=== PATIENT | female | born 1960 | race African-American/Black ===

== ENCOUNTER 2017-05-17 09:08 | Emergency (ER) | payer OTHER ==
--- NOTE | 2017-05-17 10:08 | RAD ---
PORTABLE UPRIGHT FRONTAL CHEST RADIOGRAPH: Date: 05-17-17 Comparison: 04-09-14 History: Cough, body aches, and flu like symptoms. FINDINGS: Lungs are clear. Heart and mediastinal contours are unremarkable. IMPRESSION: No acute findings. POS: [facility]
[2017-05-17] MEDS ORDERED: predniSONE 20 MG TAB ONE (10:12)
== END 2017-05-17 11:09 | disposition home or self-care (01) ==
LOC: ERS 09:08
DX: J06.9 Acute upper respiratory infection, unspecified (principal); I10 Essential (primary) hypertension; J45.909 Unspecified asthma, uncomplicated; E78.5 Hyperlipidemia, unspecified; F32.9 Major depressive disorder, single episode, unspecified; Z79.899 Other long term (current) drug therapy
CPT/HCPCS: 71045; J7506; J7620

== ENCOUNTER 2019-02-05 02:08 | Emergency (ER) | payer OTHER ==
[2019-02-05] MEDS ORDERED: Aspirin 325 MG TAB ONE (02:25)
[2019-02-05 02:50] LABS: #Basophils 0.1 thou/uL (0.0-0.2); #Eosinphils 0.1 thou/uL (0.0-0.7); #Monocytes 0.9 thou/uL (0.11-0.59); %Basophils 0.8 % (0.0-1.0); %Eosinophils 2.1 % (0.0-10.0); %Lymphocytes 42.4 % (21.0-51.0); %Monocytes 12.5 % (0.0-10.0); %Neutrophils 42.3 % (42.0-75.0); Hemoglobin 12.5 g/dL (12.0-16.0); Mean Corpuscular HGB CONC 33.5 g/dL (32.0-36.0); Mean Corpuscular Hemoglobin 26.9 pg (27.0-31.0); Mean Corpuscular Volume 80.5 fL (78.0-98.0); Mean Platelet Volume 9.5 fL (7.4-10.4); Platelet Count 177 thou/uL (130-400); RBC Distribution Width 15.1 % (11.5-14.5); Red Blood Cell (RBC) Count 4.65 mill/uL (4.20-5.40); White Blood Cell (WBC) Count 7.1 thou/uL (4.8-10.8)
[2019-02-05 03:10] LABS: ALT (SGPT) 36 U/L (8-55); AST (SGOT) 42 U/L (5-34); Albumin 4.3 g/dL (3.5-5.0); Alkaline Phosphatase 53 U/L (40-110); Anion Gap 17 mmol/L (10-20); BUN (Urea Nitrogen) 16 mg/dL (9.8-20.1); Bilirubin, Total 0.5 mg/dL (0.2-1.2); Calc. Creatinine Clearance 0 mL/min (70-130); Calcium 9.4 mg/dL (7.8-10.44); Carbon Dioxide 28 mmol/L (22-29); Chloride 97 mmol/L (98-107); Estimated GFR-MDRD Greater than 90; Glucose 106 mg/dL (70-105); Protein, Total 7.3 g/dL (6.0-8.3); Sodium 139 mmol/L (136-145)
[2019-02-05 03:13] LABS: Potassium 2.8 mmol/L (3.5-5.1)
[2019-02-05] MEDS ORDERED: Potassium Chloride 20 MEQ TAB ONE (03:32)
[2019-02-05] MEDS ORDERED: Potassium Chloride 20 MEQ in Premix Bag 1 BAG IVPB SCH (03:45)
--- NOTE | 2019-02-05 08:04 | RAD ---
Exam: Chest one view HISTORY:Chest pain Comparison: 05/17/2017 FINDINGS: Cardiac silhouette: Normal Aorta: Unremarkable Pulmonary vessels: Normal Costophrenic angles: Clear LUNGS: No masses or consolidation. Pneumothorax: None Osseous abnormalities: None IMPRESSION: No acute cardiopulmonary process.
== END 2019-02-05 03:50 | disposition home or self-care (01) ==
LOC: ERS 02:08
DX: S46.912A Strain of unspecified muscle, fascia and tendon at shoulder and upper arm level, left arm, initial encounter (principal); E87.6 Hypokalemia; I10 Essential (primary) hypertension; J45.909 Unspecified asthma, uncomplicated; E78.5 Hyperlipidemia, unspecified; M19.90 Unspecified osteoarthritis, unspecified site; F32.9 Major depressive disorder, single episode, unspecified; Z79.899 Other long term (current) drug therapy; X58.XXXA Exposure to other specified factors, initial encounter
CPT/HCPCS: 36415; 71045; 80053; 83735; 84484; 85025; 93005; J3480

== ENCOUNTER 2020-07-31 01:18 | Emergency (ER) | payer OTHER ==
[2020-07-31] MEDS ORDERED: Aspirin Chewable 81 MG TAB ONE (01:31)
[2020-07-31 01:50] LABS: #Basophils 0.1 thou/uL (0.0-0.2); #Eosinphils 0.1 thou/uL (0.0-0.7); #Lymphocytes 4.2 thou/uL (1.20-3.40); #Monocytes 0.5 thou/uL (0.11-0.59); #Neutrophils 4.1 thou/uL (1.40-6.50); %Basophils 1.2 % (0.0-1.0); %Eosinophils 1.3 % (0.0-10.0); %Lymphocytes 46.7 % (21.0-51.0); %Monocytes 5.8 % (0.0-10.0); %Neutrophils 45.1 % (42.0-75.0); Hemoglobin 11.1 g/dL (12.0-16.0); Mean Corpuscular HGB CONC 33.6 g/dL (32.0-36.0); Mean Corpuscular Volume 83.2 fL (78.0-98.0); Mean Platelet Volume 8.1 fL (7.4-10.4); Platelet Count 396 thou/uL (130-400); RBC Distribution Width 13.7 % (11.5-14.5); Red Blood Cell (RBC) Count 3.96 mill/uL (4.20-5.40)
[2020-07-31 02:16] LABS: ALT (SGPT) 12 U/L (8-55); AST (SGOT) 27 U/L (5-34); Albumin 3.7 g/dL (3.5-5.0); Alkaline Phosphatase 68 U/L (40-110); Anion Gap 16 mmol/L (10-20); BUN (Urea Nitrogen) 11 mg/dL (9.8-20.1); Bilirubin, Total Less than 0.2 mg/dL (0.2-1.2); Calc. Creatinine Clearance 0 mL/min (70-130); Calcium 9.2 mg/dL (7.8-10.44); Carbon Dioxide 26 mmol/L (22-29); Chloride 103 mmol/L (98-107); Globulin 3.5 g/dL (2.4-3.5); Glucose 113 mg/dL (70-105); Lipase 180 U/L (8-78); Magnesium 1.3 mg/dL (1.6-2.6); Potassium 3.4 mmol/L (3.5-5.1); Protein, Total 7.2 g/dL (6.0-8.3); Sodium 142 mmol/L (136-145)
[2020-07-31] MEDS ORDERED: Lidocaine Viscous Sol 2% 15 ml UD Cup ONE (02:28)
[2020-07-31] MEDS ORDERED: Mag-Al 1200 mg/1200 mg/30 ML UDCUP ONE (02:28)
[2020-07-31] MEDS ORDERED: Iopamidol-370 76% 500 ML 1 ML ONE (11:03)
== END 2020-07-31 05:53 | disposition home or self-care (01) ==
LOC: ERS 01:18
DX: R07.9 Chest pain, unspecified (principal); I10 Essential (primary) hypertension; E78.5 Hyperlipidemia, unspecified; Z79.899 Other long term (current) drug therapy
CPT/HCPCS: 36415; 71045; 74177; 80053; 83690; 83735; 84484; 85025; 93005; Q9967

== ENCOUNTER 2021-02-26 04:25 | Observation (INO) | payer OTHER ==
[~2021-02-26 04:25] MED LIST: Lorazepam 1 MG TAB PO PRN
[2021-02-26 05:56] LABS: #Basophils 0.1 thou/uL (0.0-0.2); #Eosinphils 0.1 thou/uL (0.0-0.7); #Lymphocytes 3.3 thou/uL (1.20-3.40); %Basophils 1.3 % (0.0-1.0); %Eosinophils 1.3 % (0.0-10.0); %Lymphocytes 38.5 % (21.0-51.0); %Monocytes 11.6 % (0.0-10.0); %Neutrophils 47.3 % (42.0-75.0); Mean Corpuscular HGB CONC 33.3 g/dL (32.0-36.0); Mean Corpuscular Volume 87.1 fL (78.0-98.0); Mean Platelet Volume 7.8 fL (7.4-10.4); Platelet Count 219 thou/uL (130-400); RBC Distribution Width 14.5 % (11.5-14.5); Red Blood Cell (RBC) Count 3.44 mill/uL (4.20-5.40); White Blood Cell (WBC) Count 8.5 thou/uL (4.8-10.8)
[2021-02-26 06:18] LABS: ALT (SGPT) 22 U/L (8-55); AST (SGOT) 38 U/L (5-34); Albumin 3.7 g/dL (3.4-4.8); Alkaline Phosphatase 58 U/L (40-110); Anion Gap 16 mmol/L (10-20); BUN (Urea Nitrogen) 19 mg/dL (9.8-20.1); Bilirubin, Total 0.2 mg/dL (0.2-1.2); Calc. Creatinine Clearance 0 mL/min (70-130); Calcium 8.1 mg/dL (7.8-10.44); Carbon Dioxide 25 mmol/L (23-31); Chloride 103 mmol/L (98-107); Globulin 3.5 g/dL (2.4-3.5); Glucose 96 mg/dL (80-115); Lipase 18 U/L (8-78); Protein, Total 7.2 g/dL (5.8-8.1); Sodium 141 mmol/L (136-145)
[2021-02-26 06:23] LABS: Potassium 2.6 mmol/L (3.5-5.1)
[2021-02-26 06:47] LABS: Bilirubin Negative (Negative); Blood, Urine 1+ (Negative); Clarity Clear (Clear); Glucose, Urine (Dipstick) Normal (Negative); Ketone, Urine Negative (Negative); Leukocyte 25 Leu/uL (Negative); Nitrite Negative (Negative); Protein, Urine (Dipstick) 20 mg/dL (Neg-Trace); RBC/HPF 0-3 HPF (0-3); Squamous Epithelial 0-3 HPF (0-3); Urobilinogen Normal mg/dL (Less than 2); WBC/HPF 0-3 HPF (0-3); pH, Urine 5.5 (5.0-9.0)
[2021-02-26 06:50] LABS: Bacteria/HPF 1+ HPF (None Seen)
[2021-02-26 07:08] LABS: Magnesium 1.5 mg/dL (1.6-2.6)
[2021-02-26] MEDS ORDERED: Potassium Chloride 20 MEQ TAB ONE ×2 (07:58→13:41)
[2021-02-26] MEDS ORDERED: Magnesium 2 GM/50 ML BAG (IN WATER) ONE (07:58)
[2021-02-26] MEDS ORDERED: ADMIXTURE FEE IVPB SCH (08:00)
[2021-02-26] MEDS ORDERED: POTASSIUM CHLORIDE IVPB SCH (08:00)
[2021-02-26] MEDS ORDERED: SODIUM CHLORIDE IVPB SCH (08:00)
[2021-02-26] MEDS ORDERED: Iopamidol-370 76% 500 ML 1 ML ONE (10:00)
[2021-02-26] MEDS ORDERED: Iopamidol 370 76% 50 ML VIAL FS ONE (10:00)
[2021-02-26] MEDS ORDERED: Lisinopril 10 MG TAB ONE (10:52)
[2021-02-26 11:31] LABS: Troponin I 0.014 ng/mL (< 0.028)
[2021-02-26] MEDS ORDERED: Lidocaine 2% Viscous Solution 10 ML, Aluminum & Magnesium Hydroxide 30 ML SSW SCH (11:45)
[2021-02-26] MEDS ORDERED: Pantoprazole 40 MG GRANULES PACKET PO SCH (11:45)
[2021-02-26] MEDS ORDERED: Lactated Ringer's 1,000 ML IV SCH ×3 (12:00→18:00)
[2021-02-26 12:39] LABS: Amphetamine Not Detected (NotDetected); Barbiturates Screen Not Detected (NotDetected); Benzodiazepine Screen Not Detected (NotDetected); Cocaine Metabolite Screen Not Detected (NotDetected); Methadone Not Detected (NotDetected); Methamphetamine Not Detected (NotDetected); Opiate Screen Not Detected (NotDetected); Oxycodone Screen Not Detected (NotDetected); Phencyclidine (PCP) Not Detected (NotDetected); THC/Cannabinoid Screen Not Detected (NotDetected); Tricyclic Screen Not Detected (NotDetected)
[2021-02-26] MEDS ORDERED: Amlodipine 10 MG TAB PO SCH (12:45)
[2021-02-26 12:48] LABS: SARS-CoV-2 NAA Rapid Test Not Detected (NotDetected)
[2021-02-26 12:49] LABS: Acetaminophen Less than 6.0 mcg/mL (10.0-30.0); Alcohol 35 mg/dL (Less than 10); Iron 76 ug/dL (50-170); Iron Binding Capacity, Total 295 mcg/dL (265-497); Salicylate Less than 8.0 mg/dL (15.0-30.0)
[2021-02-26 12:50] LABS: Iron 71 ug/dL (50-170); Iron Binding Capacity, Total 281 mcg/dL (265-497)
[2021-02-26] MEDS ORDERED: hydrALAZINE 20 MG/ML VIAL ONE (12:56)
[2021-02-26] MEDS ORDERED: Thiamine HCl 200 MG/2 ML VIAL SLOW IVP SCH (13:00)
[2021-02-26 13:09] LABS: Anion Gap 20 mmol/L (10-20); BUN (Urea Nitrogen) 15 mg/dL (9.8-20.1); Calc. Creatinine Clearance 0 mL/min (70-130); Calcium 8.2 mg/dL (7.8-10.44); Carbon Dioxide 18 mmol/L (23-31); Chloride 108 mmol/L (98-107); Glucose 88 mg/dL (80-115); Sodium 143 mmol/L (136-145)
[2021-02-26 13:22] LABS: Potassium 2.9 mmol/L (3.5-5.1)
[2021-02-26 13:23] LABS: Troponin I 0.012 ng/mL (< 0.028)
[2021-02-26] MEDS ORDERED: Nicotine 14 MG PATCH TD PRN (13:27)
[2021-02-26] MEDS ORDERED: Ondansetron ODT 4 MG TAB PO PRN ×2 (13:27→15:30)
[2021-02-26 14:20] LABS: Lactic Acid 2.3 mmol/L (0.5-2.2)
[2021-02-26] MEDS: hydrALAZINE 20 MG/ML VIAL SLOW IVP PRN ×3 (14:30→23:23)
[2021-02-26] MEDS ORDERED: Lorazepam 2 MG/ML VIAL SLOW IVP SCH (14:45)
[2021-02-26] MEDS: Lorazepam 1 MG TAB PO SCH ×3 (15:23→23:19)
[2021-02-26] MEDS ORDERED: Electrolyte Replacement Protocol 1 EACH FS PRN (15:30)
[2021-02-26] MEDS ORDERED: Lorazepam 2 MG/ML VIAL IM PRN (15:30)
[2021-02-26 17:36] LABS: Lactic Acid 2.9 mmol/L (0.5-2.2)
[2021-02-26 17:42] LABS: Anion Gap 15 mmol/L (10-20); BUN (Urea Nitrogen) 15 mg/dL (9.8-20.1); Calc. Creatinine Clearance 0 mL/min (70-130); Calcium 8.4 mg/dL (7.8-10.44); Carbon Dioxide 24 mmol/L (23-31); Chloride 105 mmol/L (98-107); Glucose 120 mg/dL (80-115); Magnesium 1.7 mg/dL (1.6-2.6); Potassium 3.1 mmol/L (3.5-5.1); Sodium 141 mmol/L (136-145)
[2021-02-26] MEDS ORDERED: Potassium Chloride 20 MEQ TAB PO SCH (18:00)
[2021-02-26] MEDS: Thiamine HCl 200 MG/2 ML VIAL SLOW IVP SCH (18:07)
[2021-02-26] MEDS ORDERED: Magnesium 2 GM/50 ML 2 GM in Premix Bag 1 BAG IVPB SCH (18:15)
[2021-02-26] MEDS ORDERED: Sucralfate 1 GM TAB PO SCH (19:30)
[2021-02-26] MEDS ORDERED: Simethicone Chewable 80 MG TAB PO PRN (20:08)
[2021-02-26] MEDS ORDERED: Ibuprofen 200 MG TAB PO SCH (20:15)
[2021-02-26] MEDS: Melatonin 3 MG TAB PO SCH (20:52)
[2021-02-27] MEDS: hydrALAZINE 20 MG/ML VIAL SLOW IVP PRN ×2 (03:53→11:24)
[2021-02-27 05:28] LABS: Lactic Acid 1.3 mmol/L (0.5-2.2)
[2021-02-27] MEDS: Lorazepam 1 MG TAB PO SCH ×3 (05:32→18:11)
[2021-02-27 06:12] LABS: Band 1 % (5-11); Eosinophils 3 % (0-10); Hemoglobin 9.7 g/dL (12.0-16.0); Lymphocytes 25 % (21-51); MDiff Complete? YES; Mean Corpuscular HGB CONC 33.1 g/dL (32.0-36.0); Mean Corpuscular Hemoglobin 28.9 pg (27.0-31.0); Mean Corpuscular Volume 87.2 fL (78.0-98.0); Monocytes 7 % (0-10); Neutrophil 64 % (42-75); Platelet Count 199 thou/uL (130-400); Platelet Morphology Comment Appears Adequate; RBC Distribution Width 14.5 % (11.5-14.5); RBC Morphology Normal; Red Blood Cell (RBC) Count 3.35 mill/uL (4.20-5.40); White Blood Cell (WBC) Count 7.6 thou/uL (4.8-10.8)
[2021-02-27] MEDS ORDERED: Albuterol Sulfate 1.25 MG/3 ML NEB NEB PRN (06:12)
[2021-02-27 07:54] LABS: Anion Gap 17 mmol/L (10-20); BUN (Urea Nitrogen) 11 mg/dL (9.8-20.1); Calc. Creatinine Clearance 0 mL/min (70-130); Calcium 8.1 mg/dL (7.8-10.44); Carbon Dioxide 22 mmol/L (23-31); Chloride 106 mmol/L (98-107); Glucose 93 mg/dL (80-115); Potassium 3.3 mmol/L (3.5-5.1); Sodium 142 mmol/L (136-145)
[2021-02-27] MEDS ORDERED: Potassium Chloride 20 MEQ TAB PO SCH ×2 (08:30→09:30)
[2021-02-27] MEDS: Folic Acid 1 MG TAB PO SCH (08:30)
[2021-02-27] MEDS: Amlodipine 10 MG TAB PO SCH (08:30)
[2021-02-27] MEDS: Multivit, Therapeutic 1 TAB PO SCH (08:31)
[2021-02-27] MEDS: Sucralfate 1 GM TAB PO SCH ×4 (08:31→21:07)
[2021-02-27] MEDS: Lisinopril/Hydrochlorothiazide 20/25 mg Tablet PO SCH (08:32)
[2021-02-27] MEDS ORDERED: Glycerin Adult Supp. (24 ct jar) PR SCH (09:00)
[2021-02-27] MEDS ORDERED: Amlodipine 10 MG TAB PO SCH (09:00)
[2021-02-27] MEDS: Polyethylene Glycol 3350 17 GM Packet PO SCH (09:42)
[2021-02-27] MEDS: Calcium Carbonate 500 MG ChewTAB PO SCH ×2 (09:42→21:06)
[2021-02-27] MEDS: Famotidine 20 MG TAB PO SCH ×2 (09:42→21:06)
[2021-02-27 11:20] LABS: Magnesium 1.8 mg/dL (1.6-2.6)
[2021-02-27 12:11] LABS: Hemoglobin A1c 5.6 % (4.0-6.0)
[2021-02-27 12:19] LABS: Cardiac Risk 5.2 (Less than 4.5)
[2021-02-27] MEDS ORDERED: Electrolyte Replacement Protocol FS PRN (12:30)
[2021-02-27] MEDS ORDERED: Magnesium 2 GM/50 ML 2 GM in Premix Bag 1 BAG IVPB SCH (12:30)
[2021-02-27 14:11] VITALS: BMI 40.3
[2021-02-27] MEDS ORDERED: Lorazepam 1 MG TAB PO PRN (15:30)
[2021-02-27] MEDS: Thiamine HCl 200 MG/2 ML VIAL SLOW IVP SCH (16:18)
[2021-02-27] MEDS ORDERED: Lisinopril 20 MG TAB PO SCH (18:15)
[2021-02-27] MEDS: Melatonin 3 MG TAB PO SCH (21:07)
[2021-02-27] MEDS ORDERED: Lorazepam 2 MG/ML VIAL SLOW IVP SCH (21:15)
[2021-02-28] MEDS: Lorazepam 1 MG TAB PO SCH (02:00)
[2021-02-28] MEDS ORDERED: Cepastat Lozenges 1 LOZ PO PRN (05:31)
[2021-02-28 06:03] LABS: Anion Gap 12 mmol/L (10-20); BUN (Urea Nitrogen) 9 mg/dL (9.8-20.1); Calc. Creatinine Clearance 119 mL/min (70-130); Calcium 8.3 mg/dL (7.8-10.44); Carbon Dioxide 24 mmol/L (23-31); Chloride 105 mmol/L (98-107); Glucose 97 mg/dL (80-115); Potassium 3.1 mmol/L (3.5-5.1); Sodium 138 mmol/L (136-145)
[2021-02-28 06:06] LABS: Phosphorus 2.1 mg/dL (2.3-4.7)
[2021-02-28] MEDS: Lorazepam 0.5 MG TAB PO SCH ×2 (06:24→11:58)
[2021-02-28] MEDS ORDERED: Potassium Chloride 20 MEQ TAB PO SCH ×2 (07:30→12:00)
[2021-02-28] MEDS: Sucralfate 1 GM TAB PO SCH ×2 (08:08→11:58)
[2021-02-28] MEDS: Calcium Carbonate 500 MG ChewTAB PO SCH (08:09)
[2021-02-28] MEDS: Amlodipine 10 MG TAB PO SCH (08:10)
[2021-02-28] MEDS: Folic Acid 1 MG TAB PO SCH (08:11)
[2021-02-28] MEDS: Lisinopril/Hydrochlorothiazide 20/25 mg Tablet PO SCH (08:11)
[2021-02-28] MEDS: Famotidine 20 MG TAB PO SCH (08:11)
[2021-02-28] MEDS: Polyethylene Glycol 3350 17 GM Packet PO SCH (08:12)
[2021-02-28] MEDS: Multivit, Therapeutic 1 TAB PO SCH (08:12)
[2021-02-28 08:20] VITALS: TEMP 98.6
[2021-02-28] MEDS ORDERED: Lisinopril 20 MG TAB PO SCH (08:45)
[2021-02-28] MEDS ORDERED: Atorvastatin Calcium 40 MG TAB PO SCH (08:45)
[2021-02-28] MEDS: Potassium Phosphate 15 MMOL in Sodium Chloride 0.9% 100 ML IVPB SCH ×2 (09:59→11:16)
[2021-02-28 11:17] VITALS: BP 183/87
[2021-02-28] MEDS ORDERED: Lorazepam 1 MG TAB PO PRN (15:30)
[2021-02-28] MEDS ORDERED: Atorvastatin Calcium 20 MG TAB PO SCH (21:00)
[2021-03-01] MEDS ORDERED: Lorazepam 0.5 MG TAB PO PRN (06:00)
[2021-03-01] MEDS ORDERED: Hydrochlorothiazide 25 MG TAB PO SCH (09:00)
[2021-03-01] MEDS ORDERED: Thiamine 100 MG TAB PO SCH (09:00)
[2021-03-01] MEDS ORDERED: Lisinopril 20 MG TAB PO SCH (09:00)
== END 2021-02-28 12:06 | disposition home or self-care (01) ==
LOC: ERS 04:25 → 2SW 10:30
PROVIDERS: ADMIT Family Medicine; ATTEND Family Medicine
DX: R10.13 Epigastric pain (principal); R14.0 Abdominal distension (gaseous); I10 Essential (primary) hypertension; K21.9 Gastro-esophageal reflux disease without esophagitis; E78.5 Hyperlipidemia, unspecified; E87.6 Hypokalemia; E83.42 Hypomagnesemia; F10.239 Alcohol dependence with withdrawal, unspecified; N39.0 Urinary tract infection, site not specified; D64.9 Anemia, unspecified; N17.9 Acute kidney failure, unspecified; E87.2 Acidosis; K76.0 Fatty (change of) liver, not elsewhere classified; K80.20 Calculus of gallbladder without cholecystitis without obstruction; K57.30 Diverticulosis of large intestine without perforation or abscess without bleeding; M19.90 Unspecified osteoarthritis, unspecified site; R00.0 Tachycardia, unspecified; K59.00 Constipation, unspecified; E53.8 Deficiency of other specified B group vitamins; F41.9 Anxiety disorder, unspecified; F32.A Depression, unspecified; Z87.891 Personal history of nicotine dependence; Z20.822 Contact with and (suspected) exposure to COVID-19; Y90.1 Blood alcohol level of 20-39 mg/100 ml
CPT/HCPCS: 36415; 71045; 74177; 80048; 80053; 80061; 80306; 80307; 81003; 81015; 82607; 82746; 83036; 83540; 83550; 83605; 83690; 83735; 84100; 84484; 85007; 85025; 85027; 87086; 93005; 96365; 96366; 96368; 96375; 96376; G0378; J0360; J2060; J3411; J3475; J3480; J3490; J7030; J7120; Q9967; U0002

== ENCOUNTER 2021-08-10 00:01 | Emergency (ER) | payer OTHER | END 2021-08-10 00:38 | disposition home or self-care (01) | LOC: ERS 00:01 | DX: M17.0 Bilateral primary osteoarthritis of knee (principal); I10 Essential (primary) hypertension; J45.909 Unspecified asthma, uncomplicated | CPT/HCPCS: 99283 ==

== ENCOUNTER 2023-02-20 00:31 | Inpatient (IN) | payer OTHER ==
[2023-02-20] MEDS ORDERED: diphenhydrAMINE 50 MG/ML VIAL ONE (01:27)
[2023-02-20] MEDS ORDERED: Prochlorperazine 10 MG/2 ML VIAL ONE (01:27)
[2023-02-20] MEDS ORDERED: Acetaminophen 500 MG TAB ONE (01:27)
[2023-02-20] MEDS ORDERED: Magnesium 2 GM/50 ML BAG (IN WATER) ONE (01:28)
[2023-02-20 02:21] LABS: Hematocrit 29.6 % (36.0-47.0); Hemoglobin 9.6 g/dL (12.0-16.0); Manual Diff?? YES; Mean Corpuscular HGB CONC 32.4 g/dL (32.0-36.0); Mean Corpuscular Hemoglobin 29.1 pg (27.0-31.0); Mean Corpuscular Volume 89.7 fl (78.0-98.0); Mean Platelet Volume 10.5 fL (7.4-10.4); Platelet Count 275 10x3/uL (130-400); RBC Distribution Width 15.3 % (11.5-14.5); White Blood Cell (WBC) Count 12.4 10x3/uL (4.8-10.8)
[2023-02-20 02:26] LABS: Delete Auto Diff?? YES
[2023-02-20 02:39] LABS: ALT (SGPT) Less than 7 U/L (8-55); AST (SGOT) 6 U/L (5-34); Albumin 3.1 g/dL (3.4-4.8); Alkaline Phosphatase 51 U/L (40-110); Anion Gap 16 mmol/L (10-20); BUN (Urea Nitrogen) 18 mg/dL (9.8-20.1); Bilirubin, Total 0.3 mg/dL (0.2-1.2); Calc. Creatinine Clearance 0 mL/min (70-130); Calcium 8.6 mg/dL (7.8-10.44); Carbon Dioxide 22 mmol/L (23-31); Chloride 108 mmol/L (98-107); Estimated GFR 25; Globulin 3.4 g/dL (2.4-3.5); Glucose 90 mg/dL (80-115); Magnesium 2.3 mg/dL (1.6-2.6); Potassium 3.2 mmol/L (3.5-5.1); Protein, Total 6.5 g/dL (5.8-8.1); Sodium 143 mmol/L (136-145)
[2023-02-20 02:41] LABS: Troponin I 0.033 ng/mL (< 0.028)
[2023-02-20] MEDS ORDERED: niCARdipine 25 MG/10 ML SDV ONE ×2 (02:57→03:16)
[2023-02-20 03:16] LABS: Band 2 % (5-11); CellaVision Operator ID lab.abc; Hypochromia SLIGHT = 6-15 cells HPF (0-5); Lymphocytes 9 % (21-51); Monocytes 5 % (0-10); Neutrophil 83 % (42-75); Platelet Adequacy Comment Platelets Normal; Smudge Cells 11.1 %; Total Cell Count 99
[2023-02-20] MEDS ORDERED: Acetaminophen 325 MG TAB PO PRN (04:15)
[2023-02-20] MEDS ORDERED: niCARdipine 25 MG in Sodium Chloride 0.9% 250 ML 250 ML IVPB SCH (04:15)
[2023-02-20] MEDS ORDERED: Albuterol 200 PUFF (6.7GM INHALER) INH PRN (04:53)
[2023-02-20] MEDS ORDERED: hydrOXYzine 25 MG TAB PO PRN (04:53)
[2023-02-20 05:32] VITALS: BMI 28.0
[2023-02-20 05:41] LABS: Troponin I 0.036 ng/mL (< 0.028)
[2023-02-20] MEDS ORDERED: Sodium Chloride 0.9% 1,000 ML IV SCH (06:15)
[2023-02-20] MEDS ORDERED: Electrolyte Replacement Protocol 1 EACH FS ONE (07:10)
[2023-02-20] MEDS ORDERED: Potassium Chloride 40 MEQ in Premix 1 BAG IVPB SCH (07:15)
[2023-02-20] MEDS ORDERED: Electrolyte Replacement Protocol FS PRN (07:30)
[2023-02-20] MEDS: Potassium Chloride 20 MEQ in Premix 1 BAG IVPB SCH ×2 (07:56→10:56)
[2023-02-20] MEDS ORDERED: FLU VACC QS2023-24(6MOS UP)/PF 60 MCG/0.5 ML SYRINGE IM ONE (09:00)
[2023-02-20] MEDS ORDERED: Hydrochlorothiazide 25 MG TAB PO SCH (09:00)
[2023-02-20] MEDS ORDERED: Amlodipine 10 MG TAB PO SCH ×2 (09:00→10:30)
[2023-02-20] MEDS ORDERED: Lisinopril 20 MG TAB PO SCH (09:00)
[2023-02-20] MEDS ORDERED: hydrALAZINE 20 MG/ML VIAL SLOW IVP PRN ×2 (09:26→13:36)
[2023-02-20 09:30] LABS: Troponin I 0.036 ng/mL (< 0.028)
[2023-02-20] MEDS: Mometasone 200 MCG/Formoterol 5 MCG 120 PUFF INHALER INH SCH ×2 (10:57→19:24)
[2023-02-20 19:49] LABS: Potassium 3.3 mmol/L (3.5-5.1)
[2023-02-20] MEDS ORDERED: Atorvastatin Calcium 20 MG TAB PO SCH (21:00)
[2023-02-20] MEDS ORDERED: Melatonin 3 MG TAB PO SCH (21:00)
[2023-02-20] MEDS ORDERED: Potassium Chloride 20 MEQ TAB PO SCH (22:00)
[2023-02-21 07:43] VITALS: TEMP 98.2
[2023-02-21] MEDS: Mometasone 200 MCG/Formoterol 5 MCG 120 PUFF INHALER INH SCH (08:30)
[2023-02-21 08:43] VITALS: BP 162/80
[2023-02-21] MEDS ORDERED: Thiamine 100 MG TAB PO SCH (09:00)
[2023-02-21] MEDS ORDERED: Amlodipine 10 MG TAB PO SCH (09:00)
[2023-02-21] MEDS ORDERED: Folic Acid 1 MG TAB PO SCH (09:00)
[2023-02-21] MEDS ORDERED: Multivit, Therapeutic 1 TAB PO SCH (09:00)
== END 2023-02-21 11:30 | disposition left against medical advice (07) | DRG 305 ==
LOC: ERS 00:31 → CCU 03:56 → T4-B 12:45
PROVIDERS: ADMIT Student in an Organized Health Care Education/Training Program; ATTEND Student in an Organized Health Care Education/Training Program
DX: I16.1 Hypertensive emergency (principal); N17.9 Acute kidney failure, unspecified; E78.5 Hyperlipidemia, unspecified; K21.9 Gastro-esophageal reflux disease without esophagitis; F43.10 Post-traumatic stress disorder, unspecified; G89.29 Other chronic pain; M54.9 Dorsalgia, unspecified; Z79.899 Other long term (current) drug therapy; Z90.49 Acquired absence of other specified parts of digestive tract; Z98.890 Other specified postprocedural states; Z83.3 Family history of diabetes mellitus; Z82.49 Family history of ischemic heart disease and other diseases of the circulatory system; Z87.891 Personal history of nicotine dependence; J44.9 Chronic obstructive pulmonary disease, unspecified; F32.9 Major depressive disorder, single episode, unspecified; M19.90 Unspecified osteoarthritis, unspecified site; F41.9 Anxiety disorder, unspecified; E87.6 Hypokalemia; I12.9 Hypertensive chronic kidney disease with stage 1 through stage 4 chronic kidney disease, or unspecified chronic kidney disease; N18.9 Chronic kidney disease, unspecified; D63.1 Anemia in chronic kidney disease; F25.9 Schizoaffective disorder, unspecified
CPT/HCPCS: 36415; 36416; 70450; 76770; 80053; 82088; 83735; 83880; 84244; 84443; 84484; 85025; 93005; 93306; 93975; 94664; J0360; J0780; J1200; J3475; J3480; J7050

== ENCOUNTER 2023-04-21 17:17 | Outpatient (CLI) | payer OTHER | END 2023-04-21 17:18 | disposition home or self-care (01) | LOC: HS RAD 17:17 | PROVIDERS: ATTEND Physical Medicine & Rehabilitation | DX: R41.82 Altered mental status, unspecified (principal); W19.XXXA Unspecified fall, initial encounter | CPT/HCPCS: 70450 ==

== ENCOUNTER 2023-06-09 20:07 | Emergency (ER) | payer OTHER | END 2023-06-09 22:16 | disposition home or self-care (01) | LOC: ERS 20:07 | DX: R60.0 Localized edema (principal); I10 Essential (primary) hypertension; W19.XXXA Unspecified fall, initial encounter ==

== ENCOUNTER 2024-02-22 10:42 | Inpatient (IN) | payer OTHER ==
[2024-02-22] MEDS ORDERED: Acetaminophen 500 MG TAB ONE (11:06)
[2024-02-22] MEDS ORDERED: Nitroglycerin 0.4 MG TAB 1 EACH ONE (11:06)
[2024-02-22] MEDS ORDERED: Furosemide 40 MG (4 mL) VIAL ONE ×2 (11:07→19:52)
[2024-02-22] MEDS ORDERED: Aspirin Chewable 81 MG TAB ONE (11:07)
[2024-02-22 11:12] LABS: Hematocrit 30.1 % (36.0-47.0); Hemoglobin 9.5 g/dL (12.0-16.0); Mean Corpuscular HGB CONC 31.6 g/dL (32.0-36.0); Mean Corpuscular Hemoglobin 26.9 pg (27.0-31.0); Mean Corpuscular Volume 85.3 fL (78.0-98.0); Mean Platelet Volume 10.9 fL (7.4-10.4); Platelet Count 273 10x3/uL (130-400); RBC Distribution Width 15.4 % (11.5-14.5); Red Blood Cell (RBC) Count 3.53 mill/uL (4.20-5.40)
[2024-02-22] MEDS ORDERED: LORazepam 2 MG/ML SYR.(CARPUJECT) ONE (11:31)
[2024-02-22 11:35] LABS: Troponin I 0.011 ng/mL (< 0.028)
[2024-02-22 11:38] LABS: ALT (SGPT) 15 U/L (8-55); AST (SGOT) 14 U/L (5-34); Albumin 3.1 g/dL (3.4-4.8); Alkaline Phosphatase 70 U/L (40-110); Anion Gap 18 mmol/L (10-20); BUN (Urea Nitrogen) 27 mg/dL (9.8-20.1); Bilirubin, Total 0.6 mg/dL (0.2-1.2); Calc. Creatinine Clearance 0 mL/min (70-130); Calcium 8.7 mg/dL (7.8-10.44); Carbon Dioxide 16 mmol/L (23-31); Chloride 118 mmol/L (98-107); Estimated GFR 26; Globulin 3.6 g/dL (2.4-3.5); Glucose 94 mg/dL (80-115); Potassium 4.5 mmol/L (3.5-5.1); Protein, Total 6.7 g/dL (5.8-8.1); Sodium 147 mmol/L (136-145)
[2024-02-22 12:09] LABS: Magnesium 1.5 mg/dL (1.6-2.6)
[2024-02-22 12:10] LABS: Bacteria/HPF None Seen HPF (None Seen); Bilirubin Negative (Negative); Blood, Urine Negative (Negative); CAUTI Indications for Culture Dysuria,urgency,freq; Clarity Clear (Clear); Glucose, Urine (Dipstick) Normal (Negative); Ketone, Urine Trace mg/dL (Negative); Leukocyte Negative Leu/uL (Negative); Nitrite Negative (Negative); Protein, Urine (Dipstick) 100 mg/dL (Neg-Trace); RBC/HPF None Seen HPF (0-3); Specific Gravity, Urine 1.005 (1.002-1.036); Squamous Epithelial None Seen HPF (0-3); Urobilinogen Normal mg/dL (Less than 2); WBC/HPF 0-3 HPF (0-3); pH, Urine 6.5 (5.0-9.0)
[2024-02-22 12:12] LABS: Urine Culture Reflex No No
[2024-02-22 12:31] LABS: Band 4 % (5-11); Eosinophils 1 % (0-10); Hypochromia SLIGHT = 6-15 cells HPF (0-5); Large Platelets 5.1 % (0-5); Lymphocytes 9 % (21-51); Monocytes 6 % (0-10); Neutrophil 79 % (42-75); Platelet Adequacy Comment Platelets Normal; Polychromasia MODERATE = 3-4 cells HPF (0-2)
[2024-02-22] MEDS ORDERED: Magnesium 2 GM/50 ML BAG (IN WATER) ONE (13:12)
[2024-02-22] MEDS ORDERED: Nitroglycerin 50 MG/250 ML BOT 250 ML ONE (13:17)
[2024-02-22] MEDS ORDERED: Labetalol HCl 100 MG/20 ML VIAL ONE (13:17)
[2024-02-22] MEDS ORDERED: niCARdipine 40MG In NaCl 40 MG/200 ML BAG IVPB SCH (16:45)
[2024-02-22] MEDS ORDERED: niCARdipine 25 MG/10 ML SDV ONE (16:59)
[2024-02-22] MEDS ORDERED: niCARdipine 25 MG in Sodium Chloride 0.9% 250 ML 250 ML IVPB SCH (17:00)
[2024-02-22] MEDS ORDERED: Ondansetron ODT 4 MG TAB PO PRN (18:41)
[2024-02-22] MEDS ORDERED: Electrolyte Replacement Protocol FS SCH (18:45)
[2024-02-22] MEDS ORDERED: Pantoprazole DR 40 MG TAB ONE (19:53)
[2024-02-22] MEDS: Furosemide 40 MG (4 mL) VIAL SLOW IVP SCH (19:58)
[2024-02-22] MEDS: Pantoprazole DR 40 MG TAB PO SCH (19:59)
[2024-02-22 23:11] VITALS: BMI 32.2
[2024-02-23] MEDS ORDERED: hydrALAZINE 20 MG/ML VIAL SLOW IVP PRN ×3 (00:24→17:55)
[2024-02-23] MEDS ORDERED: hydrALAZINE 20 MG/ML VIAL ONE ×2 (00:27→00:38)
[2024-02-23] MEDS: hydrALAZINE 20 MG/ML VIAL SLOW IVP PRN (00:54)
[2024-02-23] MEDS: Labetalol HCl 100 MG/20 ML VIAL SLOW IVP PRN (02:41)
[2024-02-23 04:56] LABS: #Basophils 0.09 10x3/uL (0.0-0.2); %Basophils 0.9 % (0.0-1.0); %Eosinophils 1.2 % (0.0-10.0); %Lymphocytes 11.3 % (21.0-51.0); %Monocytes 7.4 % (0.0-10.0); Hematocrit 29.5 % (36.0-47.0); Hemoglobin 9.7 g/dL (12.0-16.0); Mean Corpuscular HGB CONC 32.9 g/dL (32.0-36.0); Mean Corpuscular Hemoglobin 27.1 pg (27.0-31.0); Mean Corpuscular Volume 82.4 fL (78.0-98.0); Mean Platelet Volume 11.5 fL (7.4-10.4); Platelet Count 253 10x3/uL (130-400); RBC Distribution Width 15.2 % (11.5-14.5); Red Blood Cell (RBC) Count 3.58 mill/uL (4.20-5.40)
[2024-02-23 05:06] LABS: Magnesium 1.6 mg/dL (1.6-2.6); Phosphorus 3.3 mg/dL (2.3-4.7)
[2024-02-23 05:12] LABS: Anion Gap 14 mmol/L (10-20); BUN (Urea Nitrogen) 25 mg/dL (9.8-20.1); Calc. Creatinine Clearance 36 mL/min (70-130); Carbon Dioxide 20 mmol/L (23-31); Chloride 114 mmol/L (98-107); Potassium 3.3 mmol/L (3.5-5.1); Sodium 145 mmol/L (136-145)
[2024-02-23 05:13] LABS: ALT (SGPT) 13 U/L (8-55); AST (SGOT) 11 U/L (5-34); Albumin 2.8 g/dL (3.4-4.8); Alkaline Phosphatase 67 U/L (40-110); Bilirubin, Total 0.6 mg/dL (0.2-1.2); Calcium 8.6 mg/dL (7.8-10.44); Estimated GFR 29; Globulin 3.6 g/dL (2.4-3.5); Glucose 99 mg/dL (80-115); Protein, Total 6.4 g/dL (5.8-8.1)
[2024-02-23] MEDS: Furosemide 40 MG (4 mL) VIAL SLOW IVP SCH (05:31)
[2024-02-23] MEDS: Thiamine HCl 200 MG/2 ML VIAL SLOW IVP SCH (05:31)
[2024-02-23] MEDS: Enoxaparin 30 MG (0.3 mL) SYRINGE SC SCH (08:51)
[2024-02-23] MEDS: Multivit, Therapeutic 1 TAB PO SCH (08:58)
[2024-02-23] MEDS: Carvedilol 25 MG TAB PO SCH (08:58)
[2024-02-23] MEDS: Isosorbide Dinitrate 5 MG TAB PO SCH (08:58)
[2024-02-23] MEDS: hydrALAZINE 25 MG TAB PO SCH (08:59)
[2024-02-23] MEDS: Pantoprazole DR 40 MG TAB PO SCH (08:59)
[2024-02-23] MEDS: Senokot 8.6 MG TAB PO SCH (09:00)
[2024-02-23] MEDS: Folic Acid 1 MG TAB PO SCH (09:01)
[2024-02-23] MEDS: Magnesium 2 GM/50 ML(in water) 2 GM in Premix 1 BAG IVPB SCH (09:02)
[2024-02-23] MEDS: Magnesium 2 GM/50 ML(in water) 1 GM in Premix 1 BAG IVPB SCH (09:03)
[2024-02-23] MEDS: Potassium Chloride 20 MEQ TAB PO SCH (09:07)
[2024-02-23 10:44] LABS: Iron 18 ug/dL (50-170); Iron Binding Capacity, Total 154 mcg/dL (265-497); Transferrin, Serum 123 mg/dL (173-360)
[2024-02-23 12:28] LABS: Potassium 3.9 mmol/L (3.5-5.1)
[2024-02-23 14:25] LABS: Amphetamine Not Detected (NotDetected); Barbiturates Screen Not Detected (NotDetected); Benzodiazepine Screen Not Detected (NotDetected); Cocaine Metabolite Screen Not Detected (NotDetected); Methadone Not Detected (NotDetected); Methamphetamine Not Detected (NotDetected); Opiate Screen Not Detected (NotDetected); Oxycodone Screen Not Detected (NotDetected); Phencyclidine (PCP) Not Detected (NotDetected); THC/Cannabinoid Screen Not Detected (NotDetected); Tricyclic Screen Not Detected (NotDetected)
[2024-02-23] MEDS: Ferrous Sulfate 325 MG TAB PO SCH (16:03)
[2024-02-23] MEDS: Lisinopril 20 MG TAB PO SCH (16:11)
[2024-02-23] MEDS ORDERED: Labetalol HCl 100 MG/20 ML VIAL SLOW IVP PRN (17:56)
[2024-02-23] MEDS ORDERED: Ipratropium/Albuterol 3 ML NEB NEB PRN (18:33)
[2024-02-24 04:09] LABS: #Basophils 0.07 10x3/uL (0.0-0.2); %Basophils 0.9 % (0.0-1.0); %Eosinophils 2.7 % (0.0-10.0); %Lymphocytes 26.9 % (21.0-51.0); %Monocytes 10.5 % (0.0-10.0); %Neutrophils 58.7 % (42.0-75.0); Hematocrit 24.3 % (36.0-47.0); Hemoglobin 7.8 g/dL (12.0-16.0); Mean Corpuscular HGB CONC 32.1 g/dL (32.0-36.0); Mean Corpuscular Hemoglobin 27.1 pg (27.0-31.0); Mean Corpuscular Volume 84.4 fL (78.0-98.0); Mean Platelet Volume 11.9 fL (7.4-10.4); Platelet Count 230 10x3/uL (130-400); RBC Distribution Width 15.1 % (11.5-14.5); Red Blood Cell (RBC) Count 2.88 mill/uL (4.20-5.40)
[2024-02-24 04:39] LABS: ALT (SGPT) 8 U/L (8-55); AST (SGOT) 6 U/L (5-34); Albumin 2.4 g/dL (3.4-4.8); Alkaline Phosphatase 51 U/L (40-110); Anion Gap 13 mmol/L (10-20); BUN (Urea Nitrogen) 24 mg/dL (9.8-20.1); Bilirubin, Total 0.3 mg/dL (0.2-1.2); Calc. Creatinine Clearance 26 mL/min (70-130); Calcium 8.3 mg/dL (7.8-10.44); Carbon Dioxide 20 mmol/L (23-31); Chloride 112 mmol/L (98-107); Estimated GFR 21; Globulin 3.1 g/dL (2.4-3.5); Glucose 93 mg/dL (80-115); Magnesium 1.7 mg/dL (1.6-2.6); Potassium 3.9 mmol/L (3.5-5.1); Protein, Total 5.5 g/dL (5.8-8.1); Sodium 141 mmol/L (136-145)
[2024-02-24] MEDS ORDERED: Lisinopril 20 MG TAB PO SCH (09:00)
[2024-02-24] MEDS: hydrALAZINE 25 MG TAB PO SCH (10:16)
[2024-02-24 11:48] LABS: Cardiac Risk 2.7 (Less than 4.5)
[2024-02-24] MEDS: Furosemide 40 MG TAB PO SCH (15:51)
[2024-02-25 04:20] LABS: #Basophils 0.05 10x3/uL (0.0-0.2); %Basophils 0.7 % (0.0-1.0); %Eosinophils 2.9 % (0.0-10.0); %Lymphocytes 33.8 % (21.0-51.0); %Monocytes 11.3 % (0.0-10.0); Hematocrit 24.2 % (36.0-47.0); Hemoglobin 7.7 g/dL (12.0-16.0); Mean Corpuscular HGB CONC 31.8 g/dL (32.0-36.0); Mean Corpuscular Hemoglobin 26.7 pg (27.0-31.0); Mean Platelet Volume 11.4 fL (7.4-10.4); Platelet Count 237 10x3/uL (130-400); Red Blood Cell (RBC) Count 2.88 mill/uL (4.20-5.40)
[2024-02-25 04:41] LABS: ALT (SGPT) 5 U/L (8-55); AST (SGOT) 7 U/L (5-34); Albumin 2.5 g/dL (3.4-4.8); Alkaline Phosphatase 47 U/L (40-110); Anion Gap 15 mmol/L (10-20); BUN (Urea Nitrogen) 26 mg/dL (9.8-20.1); Bilirubin, Total 0.2 mg/dL (0.2-1.2); Calc. Creatinine Clearance 25 mL/min (70-130); Calcium 8.2 mg/dL (7.8-10.44); Carbon Dioxide 19 mmol/L (23-31); Chloride 109 mmol/L (98-107); Estimated GFR 20; Globulin 3.1 g/dL (2.4-3.5); Glucose 94 mg/dL (80-115); Magnesium 1.5 mg/dL (1.6-2.6); Potassium 3.7 mmol/L (3.5-5.1); Protein, Total 5.6 g/dL (5.8-8.1); Sodium 139 mmol/L (136-145)
[2024-02-25] MEDS: Magnesium 2 GM/50 ML(in water) 2 GM in Premix 1 BAG IVPB SCH (08:47)
[2024-02-25] MEDS: Ferrous Sulfate 325 MG TAB PO SCH (08:49)
[2024-02-25] MEDS: Potassium Chloride 20 MEQ TAB PO SCH (08:50)
[2024-02-25 12:33] VITALS: BP 143/74; TEMP 98.5
[2024-02-25] MEDS ORDERED: Thiamine 100 MG TAB PO SCH (21:00)
[2024-02-25] MEDS ORDERED: Atorvastatin Calcium 40 MG TAB PO SCH (21:00)
[2024-02-26] MEDS ORDERED: FLU (Fluarix Triv) TS24-25(6MOS UP)/PF 45 MCG/0.5 ML Syringe IM ONE (09:00)
== END 2024-02-25 14:10 | disposition home or self-care (01) | DRG 189 ==
LOC: ERS 10:42 → ERHOLD 14:09 → 2NO 02-23 02:34
PROVIDERS: ADMIT Internal Medicine; ATTEND Internal Medicine
DX: J81.0 Acute pulmonary edema (principal); J96.01 Acute respiratory failure with hypoxia; I16.1 Hypertensive emergency; N17.9 Acute kidney failure, unspecified; N18.4 Chronic kidney disease, stage 4 (severe); D64.9 Anemia, unspecified; E87.6 Hypokalemia; E83.42 Hypomagnesemia; I10 Essential (primary) hypertension; M19.90 Unspecified osteoarthritis, unspecified site; Z90.49 Acquired absence of other specified parts of digestive tract; F41.9 Anxiety disorder, unspecified; J44.9 Chronic obstructive pulmonary disease, unspecified; K21.9 Gastro-esophageal reflux disease without esophagitis; Z79.899 Other long term (current) drug therapy
CPT/HCPCS: 36415; 71045; 80053; 80061; 80306; 80307; 81001; 82728; 83540; 83550; 83735; 83880; 84100; 84466; 84484; 85025; 85046; 93005; 93306; 94660; 94760; 96365; 96366; 96375; J0360; J1650; J1940; J2060; J3411; J3475